=== PATIENT | female | born 1960 | race Caucasian/White ===

== ENCOUNTER 2016-08-01 17:31 | Inpatient (IN) | payer OTHER ==
[2016-08-01 21:05] LABS: HEMOGLOBIN 15.9 gm/dl (12.3-15.3); RED BLOOD COUNT 4.92 M/UL (4.00-5.10); WHITE BLOOD COUNT 8.4 K/UL (4.5-11.0)
[2016-08-01 21:18] LABS: BUN/CREATININE RATIO 14 (0-10)
[2016-08-02] MEDS ORDERED: LOPRESSOR 50 MG50 MG PO (01:30)
[2016-08-02] MEDS ORDERED: SERTRALINE HCL25 MG PO (01:31)
[2016-08-02] MEDS ORDERED: SYNTHROID88 MCG PO (01:31)
[2016-08-02] MEDS ORDERED: LISINOPRIL40 MG PO (01:35)
[2016-08-02] MEDS ORDERED: SIMVASTATIN40 MG PO (01:36)
[2016-08-02] MEDS ORDERED: FLONASE 0.05% N16 GM (01:38)
[2016-08-02] MEDS ORDERED: ZANTAC150 MG PO (01:39)
[2016-08-03 06:50] LABS: WHITE BLOOD COUNT 6.8 K/UL (4.5-11.0)
[2016-08-03 06:54] LABS: HEMOGLOBIN 12.4 gm/dl (12.3-15.3); RED BLOOD COUNT 3.89 M/UL (4.00-5.10)
[2016-08-03 06:59] LABS: BUN/CREATININE RATIO 10 (0-10)
[2016-08-03] MEDS ORDERED: PERCOCET 10-321 EACH PO (12:43)
== END 2016-08-03 14:45 | disposition home or self-care (01) | DRG 494 ==
LOC: ER1 17:31 → M/S 22:07 → ZEROF 22:07 → M/S 08-02 00:28
PROVIDERS: Specialist/Technologist Athletic Trainer; ADMIT Orthopaedic Surgery
PROC: 0QSG04Z Reposition Right Tibia with Internal Fixation Device, Open Approach (ICD-10-PCS; principal; 2016-08-02 13:15)
PROC: 0QSJ04Z Reposition Right Fibula with Internal Fixation Device, Open Approach (ICD-10-PCS; principal; 2016-08-02 13:15)
DX: S82.851A Displaced trimalleolar fracture of right lower leg, initial encounter for closed fracture (principal); W10.8XXA Fall (on) (from) other stairs and steps, initial encounter; Y93.01 Activity, walking, marching and hiking; Y92.830 Public park as the place of occurrence of the external cause; Y99.8 Other external cause status; E03.9 Hypothyroidism, unspecified; I10 Essential (primary) hypertension; F17.210 Nicotine dependence, cigarettes, uncomplicated; F41.9 Anxiety disorder, unspecified; E78.5 Hyperlipidemia, unspecified; Z79.899 Other long term (current) drug therapy
CPT/HCPCS: 29515; 36415; 73564; 73590; 73600; 73610; 73630; 76000; 80048; 80053; 82550; 82553; 85025; 85610; 85730; 86850; 86900; 86901; 93005; 96374; 96375; 99284; C1713; C1776; J0690; J2250; J2270; J2405; J2795; J3010; J7030; J7120; Q0162

== ENCOUNTER → 2021-01-24 | Outpatient (CLI) | payer OTHER ==
[~2021-01-24] MED LIST: AUGMENTIN 875-1 EACH PO; FLONASE 0.05% N16 GM; LIPITOR TAB 2020 MG PO; LISINOPRIL40 MG PO; LOPRESSOR 50 MG50 MG PO; MONTELUKAST SOD10 MG PO; NORVASC 5 MG TAB5 MG PO; PERCOCET 10-321 EACH PO; PERCOCET 5-3251 EACH PO; PREDNISONE20 MG PO; SERTRALINE HCL25 MG PO; SIMVASTATIN40 MG PO; SYNTHROID88 MCG PO; VENTOLIN HFA 66.7 GM INH; ZANTAC150 MG PO
== END ==
LOC: EXRD 09:32
DX: M54.5 Low back pain (principal); M25.551 Pain in right hip; M25.552 Pain in left hip; M47.816 Spondylosis without myelopathy or radiculopathy, lumbar region
CPT/HCPCS: 72100; 73522